=== PATIENT | female | born 1955 | race Caucasian/White ===

== ENCOUNTER 2016-12-08 08:19 | Emergency (ER) | payer OTHER ==
--- NOTE | 2016-12-08 08:32 | EDM.PDOC ---
ED HPI GENERAL MEDICAL PROBLEM - General Chief Complaint: Back Pain or Injury Stated Complaint: [id number] SCREWED BACK UP PULLING HITCH Time Seen by Provider: 12/08/16 08:31 Source of Information: Reports: Patient, Family (), RN, RN Notes Reviewed History Limitations: Reports: No Limitations - History of Present Illness INITIAL COMMENTS - FREE TEXT/NARRATIVE: C/O sudden onset of low back pain yesterday when pt tried to lift a 5th wheel hitch at their camp site. Pt reports feeling a loud "pop" sound in the low back. Since that time her back has been tight, and painful with a constant ache , and spasms. Pt admits to pain radiating down the anterior aspect of the B/L thighs. Denies saddle area numbness, motor weakness, or loss of bowel or bladder control. Onset: Sudden Duration: Constant Location: Reports: Back Quality: Reports: Ache Severity: Severe Improves with: Reports: Immobilization Worsens with: Reports: Movement Associated Symptoms: Reports: No Other Symptoms Treatments TAVERN OPERATOR: Reports: NSAIDS Bilateral Lower Back Pain Score (Numeric/FACES): 9 - Related Data Allergies Allergy/AdvReac Type Severity Reaction Status Date / Time No Known Allergies Allergy Verified 12/08/16 08:41 Home Meds: Home Meds Levothyroxine Sodium [Synthroid] 137 mcg PO DAILY 12/08/16 [History] Simvastatin [Zocor] 20 mg PO DAILY 12/08/16 [History] Past Medical History Cardiovascular History: Reports: High Cholesterol Endocrine/Metabolic History: Reports: Hypothyroidism, Obesity/BMI 30+ Social & Family History - Family History Family Medical History: Noncontributory - Living Situation & Occupation Living situation: Reports: , with Spouse Occupation: Retired ED ROS GENERAL - Review of Systems Review Of Systems: ROS reveals no pertinent complaints other than HPI. ED EXAM,LOWER BACK PAIN/INJURY - Physical Exam Exam: See Below Exam Limited By: No Limitations General Appearance: Alert, WD/WN, No Apparent Distress Head: Atraumatic, Normocephalic Neck: Normal Inspection Respiratory/Chest: No Respiratory Distress Cardiovascular: Normal Peripheral Pulses GI/Abdominal: Normal Bowel Sounds, Soft, Non-Tender, No Distention Back Exam: Decreased Range of Motion (at L-spine region), Muscle Spasm (lumbar region), Paraspinal Tenderness (lumbar). No: CVA Tenderness (L), CVA Tenderness (R), Vertebral Tenderness Extremities: Normal Inspection, Normal Range of Motion, Non-Tender, No Pedal Edema, Normal Capillary Refill Neurological: Alert, Normal Mood/Affect, Normal Dorsiflexion, CN II-XII Intact, Normal Plantar Flexion, Normal Reflexes, No Motor/Sensory Deficits, Oriented x 3 , Other (antalgic gait, slightly forward flexed at waist) Course - Vital Signs Last Recorded V/S: Last Vital Signs Temp 36.6 C 12/08/16 08:34 Pulse 92 12/08/16 08:34 Resp 20 12/08/16 08:34 BP 181/99 H 12/08/16 08:34 Pulse Ox 98 12/08/16 08:34 - Orders/Labs/Meds Orders: Active Orders 24 hr Category Date Time Status Lumbar Spine 2 or 3V [CR] Urgent Exams 12/08/16 08:39 Stop Req Lumbar Spine wo Cont [CT] Urgent Exams 12/08/16 08:53 Taken Meds: Medications Discontinued Medications Generic Name Dose Route Start Last Admin Trade Name Karmen PRN Reason Stop Dose Admin Hydrocodone Bitart/Acetaminophen 1 tab 12/08/16 08:38 12/08/16 09:15 [place] 325-10 Mg PO 12/08/16 08:39 1 tab ONETIME ONE Administration Ketorolac Tromethamine 30 mg 12/08/16 08:36 12/08/16 09:16 Toradol IM 12/08/16 08:37 30 mg ONETIME ONE Administration Ondansetron HCl 4 mg 12/08/16 08:39 12/08/16 09:16 Zofran Odt PO 12/08/16 08:40 4 mg ONETIME ONE Administration - Radiology Interpretation Free Text/Narrative:: CT L-spine: Chronic appearing lumbar DDD, osteophyte complex encroaching on the spinal canal posteriorly at L5-S1, osteopenic pt with subtle decreased Ht of L2 (insufficiency fracture) or L2 vertebral body of unknown age; see Rad. report. CT Results Date: 12/08/16 Departure - Departure Time of Disposition: 09:37 Disposition: Home, Self-Care 01 Condition: Fair Clinical Impression: DDD (degenerative disc disease), lumbar, Lumbar radiculopathy, acute Lumbar compression fracture Qualifiers: Encounter type: initial encounter Lumbar vertebra fracture level: L2 Fracture type: closed Qualified Code(s): S32.020A - Wedge compression fracture of second lumbar vertebra, initial encounter for closed fracture - Discharge Information Instructions: Back Pain, Adult, [id number], Spinal Compression Fracture, Lumbosacral Radiculopathy Forms: ED Department Discharge Additional Instructions: Rest, apply ice packs to low back. Light activity as tolerated. Avoid bending and lifting. Rx: Medrol Dose Luis Rx: [place] 5mg/325mg Follow up in clinic with your doctor at the first available appointment for recheck. - My Orders Last 24 Hours: My Active Orders 12/08/16 08:39 Lumbar Spine 2 or 3V [CR] Urgent 12/08/16 08:53 Lumbar Spine wo Cont [CT] Urgent - Assessment/Plan Last 24 Hours: My Active Orders 12/08/16 08:39 Lumbar Spine 2 or 3V [CR] Urgent 12/08/16 08:53 Lumbar Spine wo Cont [CT] Urgent
[2016-12-08 08:36] VITALS: BP 181/99
[2016-12-08] MEDS ORDERED: Ketorolac 30 MG/ML SDV IM ONE (08:36)
[2016-12-08] MEDS ORDERED: Acetaminophen/HYDROcodone 325-10 MG Tab PO ONE (08:38)
[2016-12-08] MEDS ORDERED: Ondansetron 4 MG Tab.DIS PO ONE (08:39)
--- NOTE | 2016-12-08 09:23 | CT ---
Clinical history: 61-year-old 183 pound female injured back lifting trailer hitch (yesterday) when sh e heard two "pops" and now experiencing "twinges" with bilateral lower extremity radiculopathy. Scan technique: Volume acquisition of data emergency unenhanced CT scan of the cervical spine obtaine d with the patient lying supine on the Siemens multi slice scanner [place], [place]. All data archived in the PAC system for storage, reformatting axial/sagittal/coronal p lanes and study. Interpretation: Abnormal. 1. Signs of chronic lower lumbar disc disease i.e loss of normal intervertebral disc spacing, endplat e sclerosis, gas nucleus pulposus, and marginal spondylosis at the L5-S1 level (large disc-osteophyte complex encroaching on the spinal canal posteriorly, at this lowest L5-S1 level). 2. *Osteopenic patient with subtle decreased height (insufficiency fracture) L2 vertebral body, age o f which is indeterminate (no comparison films). 3. No sign of other lumbar fracture, spondylolisthesis or abnormal intervertebral disc space narrowin g.
== END 2016-12-08 10:00 | disposition home or self-care (01) ==
LOC: DL.ED 08:19
DX: S32.020A Wedge compression fracture of second lumbar vertebra, initial encounter for closed fracture (principal); M51.16 Intervertebral disc disorders with radiculopathy, lumbar region; Z79.899 Other long term (current) drug therapy; X50.0XXA Overexertion from strenuous movement or load, initial encounter
CPT/HCPCS: 72131; 96372; 99283; A9270; J1885

== ENCOUNTER 2018-09-28 05:45 | Day surgery (SDC) | payer OTHER ==
[2018-09-28] MEDS ORDERED: Midazolam 1 MG/ML 2 ML SDV IV ONE ×7 (05:46→07:06)
[2018-09-28] MEDS ORDERED: fentaNYL 100 MCG/2 ML SDV IV ONE ×4 (05:46→07:08)
[2018-09-28] MEDS ORDERED: Sodium Chloride 0.9% 10 ML Syringe FLUSH PRN (06:00)
[2018-09-28] MEDS ORDERED: Dextrose 5%-0.45% NaCl 1,000 ML IV SCH (06:00)
[2018-09-28] MEDS ORDERED: fentaNYL 100 MCG/2 ML SDV ONE (06:13)
[2018-09-28] MEDS ORDERED: Midazolam 1 MG/ML 2 ML SDV ONE (06:13)
[2018-09-28 10:32] VITALS: BP 99/54
--- NOTE | 2018-09-28 12:15 | OR ---
DATE: 09/28/2018 PROCEDURES: Total colonoscopy, terminal ileoscopy, NBI, and multiple pinch biopsies. INSTRUMENT USED: PCF-H190DL Olympus video colonoscope. PREMEDICATIONS: Fentanyl 150 mcg intravenous, Versed 4 mg intravenous, nasal O2 cannula. The procedure was done under pulse oximetry, BP recording, and equipment monitor phototypesetting. INDICATION: The patient with chronic diarrhea unexplained and not responsive to medical measures. Colonoscopic examination is done for detection of any polypoid lesions and removal, biopsies to be obtained for microscopic colitis, endoscopic hemostasis therapy if needed. DESCRIPTION OF PROCEDURE: Initial rectal exam showed prolapsing mucosa with external hemorrhoidal tags. Rigid anoscopy showed moderate sized internal hemorrhoids without bleeding from them. The colonoscope was passed with ease. Numerous scattered diverticula were noted in the distal left colon along with deformity. The scope was passed with ease up to and beyond the ileocecal junction to visualize normal-appearing terminal ileum, NBI views were obtained, multiple pinch biopsies were taken from the terminal ileum, sent for histopathology. Photographs were also taken of the normal appearing cecum. No bleeding was noted from any of the visualized areas at the commencement of the examination. The bowel preparation was found to be adequate, Hammond scale 2 in all the regions. No stricture. No vascular ectasia. No large isolated ulcerations seen. No evidence of diffuse inflammatory bowel disease in the form of friability, contact bleeding, or ulcerations. No polyp or tumor mass identified. Probing the proximal sides of folds and flexures using adequate distention and clearing up the stool material, withdrawal of the scope was made. Multiple pinch biopsies were taken from the normal-appearing mucosa of the mid transverse colon, mid descending colon, and rectosigmoid, and sent for any histopathologic evidence of microscopic colitis. No bleeding was noted from any of the visualized areas at the completion of examination. IMPRESSION: 1. External and internal hemorrhoids. 2. Diverticulosis. The patient tolerated the procedure well. [facility] /[id number]
== END 2018-09-28 09:29 | disposition home or self-care (01) ==
LOC: DL.ENDO 05:45
PROVIDERS: ATTEND Internal Medicine Gastroenterology
DX: K57.30 Diverticulosis of large intestine without perforation or abscess without bleeding (principal); K64.4 Residual hemorrhoidal skin tags; K64.8 Other hemorrhoids; K90.49 Malabsorption due to intolerance, not elsewhere classified; E03.9 Hypothyroidism, unspecified; E78.5 Hyperlipidemia, unspecified; E66.09 Other obesity due to excess calories; Z68.30 Body mass index [BMI] 30.0-30.9, adult; Z85.828 Personal history of other malignant neoplasm of skin; Z79.82 Long term (current) use of aspirin; Z79.899 Other long term (current) drug therapy; Z88.8 Allergy status to other drugs, medicaments and biological substances; Z98.890 Other specified postprocedural states
CPT/HCPCS: 45380; J2250; J3010; J7042

== ENCOUNTER 2018-11-22 07:38 | Emergency (ER) | payer MEDICARE, OTHER, BC ==
[2018-11-22 07:48] VITALS: BP 154/71
--- NOTE | 2018-11-22 08:06 | EDM.PDOC ---
ED HPI GENERAL MEDICAL PROBLEM - General Chief Complaint: Upper Extremity Injury/Pain Stated Complaint: RIGHT SHOULDER PAIN Time Seen by Provider: 11/22/18 07:55 Source of Information: Reports: Patient, Family, RN, RN Notes Reviewed History Limitations: Reports: No Limitations - History of Present Illness INITIAL COMMENTS - FREE TEXT/NARRATIVE: Pt to ER with c/o right shoulder pain and decreased ROM. Pt states she was lifting a bucket of rocks on Thursday and injured the right shoulder. Patient states she has had pain and decreased ROM since then. States she has used Tylenol, Ibuprofen, heat, ice, and tried one of her husbands Oxycodone, without relief. Patient rates the pain 11/06. Onset: Sudden Onset Date: 11/20/18 Duration: Constant, Getting Worse Location: Reports: Upper Extremity, Right Right Shoulder Pain Score (Numeric/FACES): 8 - Related Data Allergies Allergy/AdvReac Type Severity Reaction Status Date / Time lansoprazole Allergy Rash Verified 11/22/18 07:49 omeprazole Allergy Rash Verified 11/22/18 07:49 Home Meds: Home Meds Simvastatin [Zocor] 40 mg PO DAILY 12/08/16 [History] Aspirin [Halfprin] 81 mg PO DAILY 09/24/18 [History] Cetirizine HCl [Zyrtec] 10 mg PO DAILY 09/24/18 [History] Cholecalciferol (Vitamin D3) [Vitamin D3] 5,000 units PO DAILY 09/24/18 [History ] Lactobacillus Acidophilus [Probiotic] 1 each PO DAILY 09/24/18 [History] Levothyroxine 150 mcg PO DAILY 09/24/18 [History] Mineral Oil/Pramoxine/ZnOx [Anusol] 1 squirt TOP ASDIRECTED 09/24/18 [History] Nystatin 1 appful TOP TID 09/24/18 [History] Omeprazole 20 mg PO ASDIRECTED 09/24/18 [History] Past Medical History HEENT History: Reports: Impaired Vision Cardiovascular History: Reports: High Cholesterol Respiratory History: Reports: None Gastrointestinal History: Reports: Chronic Constipation, Chronic Diarrhea Genitourinary History: Reports: None STAFF REGISTERED 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: Musculoskeletal History: Reports: None Neurological History: Reports: None Psychiatric History: Reports: None Endocrine/Metabolic History: Reports: Hypothyroidism, Obesity/BMI 30+ Hematologic History: Reports: None Immunologic History: Reports: None Oncologic (Cancer) History: Reports: Basal Cell Carcinoma Dermatologic History: Reports: None - Infectious Disease History Infectious Disease History: Reports: Chicken Pox, Measles - Past Surgical History Head Surgeries/Procedures: Reports: None HEENT Surgical History: Reports: Adenoidectomy, Tonsillectomy Cardiovascular Surgical History: Reports: None GI Surgical History: Reports: Appendectomy, Colonoscopy Female Surgical History: Reports: None Endocrine Surgical History: Reports: None Social & Family History - Family History Family Medical History: Noncontributory - Tobacco Use Smoking Status *Q: Never Smoker Second Hand Smoke Exposure: No - Caffeine Use Caffeine Use: Reports: Coffee Caffeine Use Comment: 1 cup daily. 1 pop daily - Recreational Drug Use Recreational Drug Use: No - Living Situation & Occupation Living situation: Reports: , with Spouse Occupation: Retired Review of Systems - Review of Systems Review Of Systems: ROS reveals no pertinent complaints other than HPI. ED EXAM, GENERAL - Physical Exam Exam: See Below Exam Limited By: No Limitations General Appearance: Alert, WD/WN, Mild Distress Eye Exam: Bilateral Eye: EOMI, Normal Inspection Ears: Normal External Exam, Hearing Grossly Normal Nose: Normal Inspection Throat/Mouth: Normal Inspection, Normal Voice, No Airway Compromise Head: Atraumatic, Normocephalic Neck: Normal Inspection, Supple, Non-Tender, Full Range of Motion Respiratory/Chest: No Respiratory Distress, Lungs Clear, Normal Breath Sounds, No Accessory Muscle Use, Chest Non-Tender Cardiovascular: Normal Peripheral Pulses, Regular Rate, Rhythm, No Edema, No Gallop, No JVD, No Murmur, No Rub Peripheral Pulses: 2+: Radial (L), Radial (R) GI/Abdominal: Normal Bowel Sounds, Soft, Non-Tender (Female) Exam: Deferred Rectal (Female) Exam: Deferred Back Exam: Normal Inspection, Full Range of Motion, NT Extremities: Normal Inspection, No Pedal Edema, Normal Capillary Refill, Arm Pain (right shoulder), Limited Range of Motion (right shoulder) Neurological: Alert, Oriented, CN II-XII Intact, Normal Cognition, Normal Gait, Normal Reflexes, No Motor/Sensory Deficits Psychiatric: Normal Affect, Normal Mood Skin Exam: Warm, Dry, Intact, Normal Color, No Rash Lymphatic: No Adenopathy Course - Vital Signs Last Recorded V/S: Last Vital Signs Temp 98.1 F 08/26/19 07:45 Pulse 104 H 11/22/18 07:45 Resp 16 11/22/18 07:45 BP 154/71 H 11/22/18 07:45 Pulse Ox 98 11/22/18 07:45 - Orders/Labs/Meds Meds: Medications Discontinued Medications Generic Name Dose Route Start Last Admin Trade Name Karmen PRN Reason Stop Dose Admin Tramadol HCl 50 mg 11/22/18 08:54 11/22/18 09:02 Ultram PO 11/22/18 08:55 50 mg ONETIME ONE Administration - Radiology Interpretation Free Text/Narrative:: Right shoulder xray: Hymeral head elevated relative to the glenoid of the scapula suggesting rotator cuff impingement or tear. Dense calcification of juxta-articular soft tissues at the insertion point rotator cuff tendon lateral aspect of the humeral head. No sign of pathologic skeletal lesion, acute right shoulder fracture, acromioclavicular separation or glenohumeral dislocation. underlying ribs upper right hemithorax unremarkable. Right lung apex is clear. Incidentally noted hypertrophic arthritic changes lower cervical spine. ( Cervical dorsal scoliosis) See rad report - Re-Assessments/Exams Free Text/Narrative Re-Assessment/Exam: 11/22/18 08:57 Pt case discussed with [address] Feliciano at [facility] who states the patient can be seen by Dr. Martinez or his INDUSTRIAL SEWER in the clinic next week. Departure - Departure Time of Disposition: 08:58 Disposition: Home, Self-Care 01 Condition: Fair Clinical Impression: Rotator cuff injury Qualifiers: Encounter type: initial encounter Laterality: right Qualified Code(s): S46.001A - Unspecified injury of muscle(s) and tendon(s) of the rotator cuff of right shoulder, initial encounter - Discharge Information *PRESCRIPTION DRUG MONITORING PROGRAM REVIEWED*: No *COPY OF PRESCRIPTION DRUG MONITORING REPORT IN PATIENT ABDULLAHI: No Instructions: How to Use a Sling, [id number], Rotator Cuff Tear Forms: ED Department Discharge Additional Instructions: Make an appointment to be seen by Dr. Martinez or his Nurse Practitioner at [facility] in [place] the end of this week or next week. [phone] Max dose of Ibuprofen (800mg) every 8 hours scheduled (take with food) Max dose of Acetaminophen (Tylenol ) (650mg) every 6 hours scheduled Ice and heat the area RX Tramadol - only for severe pain when other meds are not working Use sling as tolerated to rest arm
[2018-11-22] MEDS ORDERED: traMADol 50 MG Tab PO ONE (08:54)
--- NOTE | 2018-11-22 09:40 | CR ---
Clinical history: 63-year-old female complaining of pain and decreased range of motion associated with "lifting injury". Interpretation: (3 views right shoulder) abnormal. 1. Humeral head elevated relative to the glenoid of the scapula suggesting rotator cuff impingement or tear. 2. Dense calcification of juxta-articular soft tissues at the insertion point rotator cuff tendon lateral aspect of the humeral head. 3. No sign of pathologic skeletal lesion, acute right shoulder fracture, acromioclavicular separation or glenohumeral dislocation. 4. Underlying ribs upper right hemithorax unremarkable. Right lung apex is clear. 5. Incidentally noted hypertrophic arthritic changes lower cervical spine. (Cervical dorsal scoliosis)
== END 2018-11-22 09:08 | disposition home or self-care (01) ==
LOC: DL.ED 07:38
DX: S46.001A Unspecified injury of muscle(s) and tendon(s) of the rotator cuff of right shoulder, initial encounter (principal); E78.00 Pure hypercholesterolemia, unspecified; E03.9 Hypothyroidism, unspecified; E66.9 Obesity, unspecified; Z68.29 Body mass index [BMI] 29.0-29.9, adult; Z88.8 Allergy status to other drugs, medicaments and biological substances; Z79.82 Long term (current) use of aspirin; Z79.899 Other long term (current) drug therapy; Z98.890 Other specified postprocedural states; Z90.49 Acquired absence of other specified parts of digestive tract; X50.0XXA Overexertion from strenuous movement or load, initial encounter
CPT/HCPCS: 73030-RT; 99283; 99283-25; A9270-GY

== ENCOUNTER 2022-10-29 17:20 | Emergency (ER) | payer MEDICARE, OTHER, BC ==
[2022-10-29] MEDS ORDERED: Naloxone 2 MG/2 ML Syringe IVPUSH PRN (18:52)
[2022-10-29] MEDS ORDERED: fentaNYL 100 MCG/2 ML SDV IVPUSH ONE (18:52)
[2022-10-29] MEDS ORDERED: Lidocaine 1% 5 ML VIAL INJECT ONE (18:53)
[2022-10-29 19:05] VITALS: BP 137/84; PULSE 100
[2022-10-29] MEDS ORDERED: Ondansetron 4 MG/2 ML SDV ONE (19:38)
[2022-10-29] MEDS ORDERED: Sodium Chloride 0.9% 500 ML IV ONE (19:57)
[2022-10-29] MEDS ORDERED: Amoxicillin/Clavulanate K 875-125 MG Tab PO ONE (20:41)
== END 2022-10-29 21:15 | disposition home or self-care (01) ==
LOC: DL.ED 17:20
DX: S61.412A Laceration without foreign body of left hand, initial encounter (principal); E78.00 Pure hypercholesterolemia, unspecified; E03.9 Hypothyroidism, unspecified; E66.9 Obesity, unspecified; Z68.30 Body mass index [BMI] 30.0-30.9, adult; Z79.82 Long term (current) use of aspirin; Z79.899 Other long term (current) drug therapy; Z88.8 Allergy status to other drugs, medicaments and biological substances; W26.0XXA Contact with knife, initial encounter
CPT/HCPCS: 12001; 96361; 96374; 99282; A9270; J2405; J3010; J7030; 99283; J3490